=== PATIENT | male | born 1950 | race Caucasian/White ===

== ENCOUNTER → 2020-03-13 10:05 | Outpatient (CLI) | payer MEDICARE, OTHER ==
[2016-11-07 13:27] VITALS: BMI 29.7
[~2020-03-13 10:05] MED LIST: ADVIL200 MG PO; ALEVE220 MG PO; CIPRO500 MG PO; CUBICIN500 MG IV; ELIQUIS2.5 MG PO; ICAPS AREDS1 TAB.SA PO; ICAPS PO; MULTIPLE VITAMI1 TA1 PO; NALFON400 MG PO; NIASPAN500 MG PO; PERCOCET 10/3251 TA1 PO; PERCOCET 5-3251 TAB PO; STERAPRED 5MG 65 M1 PO; VIBRAMYCIN 100100 MG PO
== END | disposition home or self-care (01) ==
LOC: D.MRI 10:05
PROVIDERS: ATTEND Orthopaedic Surgery
DX: M46.06 Spinal enthesopathy, lumbar region (principal)